=== PATIENT | male | born 1950 | race Two or more races ===

== ENCOUNTER 2025-02-21 14:37 | Inpatient (IN) | payer MEDICARE, MEDICAID ==
[~2025-02-21] VITALS: Ht 172.7 cm; Wt 85.9 kg
[2025-02-21] MEDS: IV NS 0.9% 1,000 ML BAG IV ONE ×2 (15:00→16:00)
[2025-02-21 15:21] LABS: PLATELET COUNT (AUTO) 196 K/uL (150-450); RED BLOOD CELL COUNT(AUTO) 4.58 MIL/uL (4.5-6.0); RED CELL DISTRIBUTION WIDTH 13.6 % (11.5-15.0); WHITE BLOOD COUNT (AUTO) 9.8 K/uL (4.3-11.0)
[2025-02-21 15:34] LABS: CALCIUM, SERUM 8.7 mg/dL (8.5-10.1); CREATININE 1.0 mg/dL (0.6-1.3); SODIUM SERUM 139.0 mmol/L (136-145); UREA NITROGEN, BLOOD 18.0 mg/dL (7-18)
[2025-02-21 15:35] LABS: INR 0.97 (0.91-1.10)
[2025-02-21 15:39] LABS: LACTIC ACID 1.7 mmol/L (0.4-2.0)
[2025-02-21 15:46] LABS: ASPARTATE AMINOTRANSFERASE 12.0 U/L (15-37); TOTAL PROTEIN, SERUM 6.5 g/dL (6.4-8.2)
[2025-02-21] MEDS: PIPERACILLIN /TAZOBACTAM 3.375 G in IV D5W 50 ML IV ONE (16:00)
[2025-02-21] MEDS ORDERED: PIPERACI/TAZO 3.375GM/D5W 50ML PB IV ONE (16:28)
[2025-02-21] MEDS ORDERED: ACETAMINOPHEN 325 MG TABLET PO PRN (17:00)
[2025-02-21] MEDS ORDERED: MAG HYDROX/AL HYDROX/SIMETH 30 ML UDC PO PRN (17:00)
[2025-02-21] MEDS ORDERED: ONDANSETRON HCL/PF 4 MG/2 ML VIAL IVP PRN (17:00)
[2025-02-21] MEDS ORDERED: MAGNESIUM HYDROXIDE 30 ML UDC PO PRN (17:00)
[2025-02-21] MEDS ORDERED: Z GUARD REMEDY 4 OZ OINT TP PRN (17:00)
[2025-02-21] MEDS ORDERED: ATOR40TA PO (17:55)
[2025-02-21] MEDS ORDERED: METF-440 PO (17:55)
[2025-02-21] MEDS ORDERED: LINA145C PO (17:55)
[2025-02-21] MEDS ORDERED: PANT40TA49 PO (17:55)
[2025-02-21] MEDS ORDERED: CLOP75TA15 PO (17:55)
[2025-02-21] MEDS ORDERED: TAMS-12 PO (17:55)
[2025-02-21] MEDS ORDERED: AMLO-212 PO (17:55)
[2025-02-21] MEDS ORDERED: LEVO25TA7 PO (17:55)
[2025-02-21] MEDS ORDERED: GABA-532 PO (17:55)
[2025-02-21] MEDS ORDERED: GLIP5TAB13 PO (17:55)
[2025-02-21] MEDS ORDERED: LISI10TA29 PO (17:55)
[2025-02-21 20:00] VITALS: BP 99/51; TEMP 97.5; O2SAT 99
[2025-02-21] MEDS: TAMSULOSIN 0.4 MG CAP.SR.24H PO SCH (21:40)
[2025-02-21 22:00] VITALS: BP 100/65; TEMP 97.5; O2SAT 99
[2025-02-21] MEDS: IV NS 0.9% 1,000 ML IV PRN (23:57)
[2025-02-22] VITALS: BP 103/65; TEMP 97.5; O2SAT 96
[2025-02-22 04:00] VITALS: BP 102/56; TEMP 97.5; O2SAT 97
[2025-02-22] MEDS: LEVOTHYROXINE SODIUM 25 MCG TABLET PO SCH (06:49)
[2025-02-22] MEDS: PANTOPRAZOLE 40 MG TABLET.DR PO SCH (06:49)
[2025-02-22 08:04] LABS: PLATELET COUNT (AUTO) 197 K/uL (150-450); RED BLOOD CELL COUNT(AUTO) 4.13 MIL/uL (4.5-6.0); RED CELL DISTRIBUTION WIDTH 13.5 % (11.5-15.0); WHITE BLOOD COUNT (AUTO) 9.0 K/uL (4.3-11.0)
[2025-02-22 08:26] LABS: ASPARTATE AMINOTRANSFERASE 10.0 U/L (15-37); CALCIUM, SERUM 8.5 mg/dL (8.5-10.1); CREATININE 1.0 mg/dL (0.6-1.3); PHOSPHORUS 3.4 mg/dL (2.5-4.9); SODIUM SERUM 143.0 mmol/L (136-145); TOTAL PROTEIN, SERUM 5.6 g/dL (6.4-8.2); UREA NITROGEN, BLOOD 19.0 mg/dL (7-18)
[2025-02-22 08:31] LABS: CREATINE KINASE, TOTAL 23.0 U/L (39-308)
[2025-02-22] MEDS: GABAPENTIN 100 MG CAPSULE PO SCH (08:59)
[2025-02-22] MEDS: CLOPIDOGREL BISULFATE 75 MG TABLET PO SCH (08:59)
[2025-02-22 10:34] VITALS: BP 119/58; TEMP 98; O2SAT 97
[2025-02-22 14:04] VITALS: BP 119/58; TEMP 98; O2SAT 97
[2025-02-22 18:59] VITALS: BP 141/62; TEMP 97.8
[2025-02-22 20:00] VITALS: BP 128/65; TEMP 98; O2SAT 98
[2025-02-22 20:36] LABS: APPEARANCE,URINE CLEAR (CLEAR); BLOOD, URINE NEGATIVE Ery/uL (NEGATIVE); LEUKOCYTE ESTERASE ,URINE NEGATIVE (NEGATIVE); NITRITE, URINE NEGATIVE (NEGATIVE); UGLUCOSE TRACE mg/dL (NEGATIVE)
[2025-02-22 20:58] LABS: ADD URINE CULTURE NO
[2025-02-22 20:59] LABS: SQUAMOUS EPITHELIAL CELL,UR Rare /HPF (None Seen)
[2025-02-23] VITALS: BP 142/64; TEMP 98; O2SAT 100
[2025-02-23 04:00] VITALS: BP 135/60; TEMP 98; O2SAT 98
[2025-02-23 08:00] VITALS: BP 125/65; TEMP 98.4; O2SAT 99
[2025-02-23 12:00] VITALS: BP 125/65; TEMP 98.4; O2SAT 99
[2025-02-23] MEDS: FLU VACC 2025-26(6MOS UP) 0.5 ML SYRINGE IM ONE (13:06)
== END 2025-02-23 15:19 | disposition home or self-care (01) | DRG 872 ==
LOC: ER 14:43 → TELE1 16:44 → MEDSG1 02-23 00:32
PROVIDERS: ADMIT Nurse Practitioner Acute Care
DX: A41.9 Sepsis, unspecified organism (principal); I69.351 Hemiplegia and hemiparesis following cerebral infarction affecting right dominant side; Z79.02 Long term (current) use of antithrombotics/antiplatelets; E03.9 Hypothyroidism, unspecified; E11.9 Type 2 diabetes mellitus without complications; I10 Essential (primary) hypertension; E86.0 Dehydration; Z85.819 Personal history of malignant neoplasm of unspecified site of lip, oral cavity, and pharynx; Z98.890 Other specified postprocedural states; E78.5 Hyperlipidemia, unspecified; Z79.890 Hormone replacement therapy; Z79.84 Long term (current) use of oral hypoglycemic drugs; Z79.899 Other long term (current) drug therapy; R26.9 Unspecified abnormalities of gait and mobility
CPT/HCPCS: 36415; 70450-TC; 71045-TC; 80048-TC; 80053-TC; 80076-TC; 81001; 82550-TC; 83605-TC; 83735-TC; 84100-TC; 84484-TC; 85025-TC; 85730-TC; 87040-TC; 87086-TC; 92526; 92611; 97110-TC; 97116-TC; 97530-TC; 97535-TC; A4223; G0378; J2543; J7030; J7060